=== PATIENT | male | born 2000 | race Caucasian/White ===

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

== ENCOUNTER → 2021-01-14 | Outpatient (CLI) | payer BC, OTHER ==
--- NOTE | 2021-01-14 18:47 | ECHOF ---
Referral Reason:R07.9 MEASUREMENTS -------- HEIGHT: 180.3 cm WEIGHT: 99.8 kg BP: RVIDd: 2.8 cm (< 3.3) IVSd: 0.7 cm (0.6 - 1.1) LVIDd: 5.2 cm (3.9 - 5.3) LVPWd: 1.4 cm (0.6 - 1.1) IVSs: 1.2 cm LVIDs: 3.7 cm LVPWs: 1.7 cm LA Diam: 3.3 cm (2.7 - 3.8) LAESV Index (A-L): 22.20 ml/m Ao Diam: 2.9 cm (2.0 - 3.7) AV Cusp: 2.2 cm (1.5 - 2.6) LA Diam: 3.3 cm (2.7 - 3.8) MV EXCURSION: 26.725 mm (> 18.000) MV EF SLOPE: 113 mm/s (70 - 150) EPSS: 0.9 cm MV E Remi: 0.92 m/s MV DecT: 223 ms MV A Remi: 0.52 m/s MV E/A Ratio: 1.78 RAP: 5.00 mmHg RVSP: 10.09 mmHg FINDINGS -------- Sinus rhythm. This was a technically good study. LV size, wall thickness and systolic function are normal, with an EF greater than 55%. The left rosalba tricular size is normal. The right ventricle is normal in size. Normal LA size by volume 22+/-6 ml/m2. The right atrial size is normal. The aortic valve is trileaflet, and appears structurally normal. No aortic stenosis or regurgitation. There is trace mitral regurgitation. Mild tricuspid regurgitation present. Right ventricular systolic pressure is normal at < 35 mmHg. There is no pulmonic regurgitation present. The aortic root size is normal. There is no pericardial effusion. CONCLUSIONS -------- 1. LV size, wall thickness and systolic function are normal, with an EF greater than 55%. 2. The left ventricular size is normal. 3. The right ventricle is normal in size. 4. Normal LA size by volume 22+/-6 ml/m2. 5. The right atrial size is normal. 6. The aortic valve is trileaflet, and appears structurally normal. No aortic stenosis or regurgitati on. 7. There is trace mitral regurgitation. 8. Mild tricuspid regurgitation present. 9. The aortic root size is normal. 10. There is no pericardial effusion. [employer]: Carolyn Antoine RDCS
== END ==
LOC: RADECHMAIN 15:02
PROVIDERS: ATTEND Family Medicine
DX: I08.1 Rheumatic disorders of both mitral and tricuspid valves (principal)
CPT/HCPCS: 93306

== ENCOUNTER 2022-06-06 19:02 | Emergency (ER) | payer BC, OTHER ==
[2022-06-06 19:16] VITALS: BP 123/75; PULSE 70; RESP 18; TEMP 98.2
--- NOTE | 2022-06-06 19:28 | ED ---
Male Urogenital HPI - General Chief complaint: Urogenital Stated complaint: urogenital Time Seen by Provider: 06/06/22 19:18 Source: patient, RN notes reviewed Mode of arrival: ambulatory - History of Present Illness Initial comments: This is a pleasant 21-year-old male who presents back complaining of left testicular pain which started about 7 AM this morning. Patient states this is still in nature, seems to be somewhat intermittent. Patient states that it hurts on the side in the back of his testicle. He states it hurts worse when he moves it or when the area is irritated. Teare. Denies any hematuria. No rashes or lesions. No fever or chills. Patient is sexually active. No other significant health history. Patient states she did have surgery as a child for an undescended testicle. Patient states he actually can feel a pulling sensation in his left inguinal area. No headache, no fever or chills, no changes in vision or hearing, no sore throat or difficulty with speech, no neck pain, no chest pain or shortness of breath, no abdominal pain, no nausea or vomiting, no changes in urination or bowel movements, no numbness or tingling, no extremity pain, no skin rashes or lesions. Past medical, surgical, social, and family history reviewed. MD Complaint: testicle pain - Related Data Home Medications Medication Instructions Recorded Confirmed Lisdexamfetamine Dimesylate 60 mg PO QAM 11/11/14 07/10/15 [Vyvanse] Previous Rx's Medication Instructions Recorded Doxycycline [Vibramycin] 100 mg PO BID 1 Days #20 each 06/06/22 Naproxen [Naprosyn] 375 mg PO Q12HR PRN #20 tablet 06/06/22 Allergies Allergy/AdvReac Type Severity Reaction Status Date / Time No Known Allergies Allergy Verified 06/06/22 19:16 Review of Systems ROS Statement: Those systems with pertinent positive or pertinent negative responses have been documented in the HPI. ROS Other: All systems not noted in ROS Statement are negative. Past Medical History Additional Past Medical History / Comment(s): autism History of Any Multi-Drug Resistant Organisms: None Reported Past Surgical History: Ear Surgery Additional Past Surgical History / Comment(s): tubes in ears, hip aspiration, descended testicle surgery Past Psychological History: No Psychological Hx Reported Past Alcohol Use History: None Reported Past Drug Use History: None Reported General Exam - General Exam Comments Initial Comments: She does not appear ill or toxic. Vital signs reviewed. Had an effusion. General appearance: alert, in no apparent distress Head exam: Present: atraumatic, normocephalic, normal inspection Eye exam: Present: normal appearance, PERRL, EOMI. Absent: scleral icterus, conjunctival injection, periorbital swelling ENT exam: Present: normal exam, mucous membranes moist Neck exam: Present: normal inspection. Absent: tenderness, meningismus, lymphadenopathy Respiratory exam: Present: normal lung sounds bilaterally. Absent: respiratory distress, wheezes, rales, rhonchi, stridor Cardiovascular Exam: Present: regular rate, normal rhythm, normal heart sounds. Absent: systolic murmur, diastolic murmur, rubs, gallop, clicks GI/Abdominal exam: Present: soft, normal bowel sounds. Absent: distended, tenderness, guarding, rebound, rigid exam: Present: normal inspection, testicular tenderness (Patient has some tenderness to the posterior aspect of left testicle over the epididymis. Cremasteric reflexes intact.), circumcision, other (No edema. No erythema. No rashes or lesions, chaperoned examination by female RN). Absent: urethral discharge, scrotal swelling Extremities exam: Present: normal inspection, full ROM, normal capillary refill. Absent: tenderness, pedal edema, joint swelling, calf tenderness Back exam: Present: normal inspection Neurological exam: Present: alert, oriented X3, CN II-XII intact Psychiatric exam: Present: normal affect, normal mood Skin exam: Present: warm, dry, intact, normal color. Absent: rash Course Vital Signs 06/06/22 19:14 Temperature 98.2 F Pulse Rate 70 Respiratory 18 Rate Blood Pressure 123/75 O2 Sat by Pulse 98 Oximetry - Reevaluation(s) Reevaluation #1: 06/06/22 21:01 Medical record is reviewed Symptoms essentially unchanged. Patient is informed of results and questions answered Patient in no distress Medical Decision Making - Medical Decision Making Patient does not appear to be systemically ill. Presents with left testicular pain. Differential includes epididymitis, testicular torsion, hydrocele, spermatocele, tomorrow torsion. We'll order an ultrasound, urine, STD testing, plan for evaluation No evidence of testicular torsion or acute pathology by ultrasound. There is a small hydrocele on the right which is not consistent with the patient's pain. There was no evidence of hernia. To treat the patient for epididymitis as he is tender over the left epididymis. We'll have the patient follow-up with urology. Ceftriaxone 500 mg IM and doxycycline started here. STD testing was sent. Patient was told to return to the ER for any signs or symptoms worsen. Told to return immediately if any other problems arise. All questions answered. Treatment plan discussed. Patient in agreement Every effort has been made to ensure accuracy of this dictation. However, due to the limitations of electronic medical records and dictation devices, errors in charting still occur. Clinical Support Tech Dr. Bear - Lab Data Lab Results 06/06/22 Range/Units 19:52 Urine Color Yellow Urine Appearance Clear (Clear) Urine pH 5.5 (5.0-8.0) Ur Specific [place] 1.029 (1.001-1.035) Urine Protein Negative (Negative) Urine Glucose (UA) Negative (Negative) Urine Ketones Negative (Negative) Urine Blood Negative (Negative) Urine Nitrite Negative (Negative) Urine Bilirubin Negative (Negative) Urine Urobilinogen <2.0 (<2.0) mg/dL Ur Leukocyte Esterase Negative (Negative) - Radiology Data Radiology results: report reviewed, image reviewed Disposition Clinical Impression: Epididymitis, left Disposition: HOME SELF-CARE Condition: Good Instructions (If sedation given, give patient instructions): Epididymitis (ED) Additional Instructions: Take antibiotics as directed. Follow-up with your regular physician as directed. Return to the ER immediately if any symptoms worsen, new symptoms arise, or any other problems develop. Make an appointment with urologist as directed. Prescriptions: Naproxen [Naprosyn] 375 mg PO Q12HR PRN #20 tablet PRN Reason: Pain Doxycycline [Vibramycin] 100 mg PO BID 1 Days #20 each Is patient prescribed a controlled substance at d/c from ED?: No Referrals: Ovidio Spears MD [STAFF PHYSICIAN] - 06/08/22 Time of Disposition: 21:03
[2022-06-06 20:03] LABS: Appearance,Urine Clear (Clear); Bilirubin,Urine Negative (Negative); Blood,Urine Negative (Negative); Color,Urine Yellow; Glucose,Urine (UA) Negative (Negative); Ketones,Urine Negative (Negative); Leukocyte Esterase,Urine Negative (Negative); Nitrite,Urine Negative (Negative); PH, Urine 5.5 (5.0-8.0); Protein,Urine Negative (Negative); Specific Gravity,Urine 1.029 (1.001-1.035); Urobilinogen,Urine <2.0 mg/dL (<2.0)
--- NOTE | 2022-06-06 20:53 | US ---
EXAMINATION TYPE: US scrotum with doppler. Grayscale and color Doppler Duplex imaging performed of t mabel scrotum. DATE OF EXAM: 06/06/2022 COMPARISON: NONE CLINICAL HISTORY: Left testicular pain. Left testicular pain x 1 day. Hx of right undescended testicl e surgery. EXAM MEASUREMENTS: TESTICLES: Right Testicle: 4.7 x 3.2 x 2.4 cm Left Testicle: 5.1 x 3.1 x 2.7 cm EPIDIDYMIS HEAD: Right Epididymis: 1.6 x 1.6 x 1.1 cm Left Epididymis: 1.2 x 1.2 x 1.3 cm Doppler performed to assess for testicular vascularity; good bilateral color flow and waveforms are s een. There is no evidence of testicular torsion. Presence of hydroceles: Right side measuring 0.9 x 0.8 x 0.4 cm Presence of varicoceles: No IMPRESSION: No evidence for acute process. Trace right hydrocele.
[2022-06-06] MEDS ORDERED: cefTRIAXone 250 MG VIAL IM STA (20:59)
[2022-06-06] MEDS ORDERED: DOXYCYCLINE 100 MG CAP PO STA (21:00)
[2022-06-08 07:55] LABS: C. trachomatis,PCR Negative (Neg,Equiv); Chlamydia trachomatis Source Urine; N. gonorrhoeae,PCR Negative (Neg,Equiv); Neisseria Source Urine
== END 2022-06-06 21:33 | disposition home or self-care (01) ==
LOC: EC 19:02
DX: N45.1 Epididymitis (principal)
CPT/HCPCS: 81003; 87491; 87591; 93975; 76870; 99284; 96372; J0696